=== PATIENT | female | born 1995 | race African-American/Black ===

== ENCOUNTER 2018-05-21 03:31 | Emergency (ER) | payer MEDICAID ==
[~2018-05-21] VITALS: Ht 162.6 cm; Wt 80.0 kg
[2018-05-21 03:40] VITALS: BP 132/73
== END 2018-05-21 05:00 | disposition left against medical advice (07) ==
LOC: ER 03:31
DX: M54.5 Low back pain (principal); Z53.21 Procedure and treatment not carried out due to patient leaving prior to being seen by health care provider